=== PATIENT | male | born 1950 | race Caucasian/White ===

== ENCOUNTER 2017-01-21 11:55 | Inpatient (IN) | payer MEDICARE, OTHER ==
[2017-01-12 20:34] LABS: HEMATOCRIT 46.4 % (40.0-51.0); HEMOGLOBIN 15.2 g/dL (13.6-17.8)
[2017-01-12 20:39] LABS: ASCORBIC ACID (UR NOT ORDER) NEG (NEG); BILIRUBIN, URINE NEGATIVE (NEG); KETONE, URINE NEGATIVE (NEG)
[2017-01-12 20:59] LABS: BUN (BLOOD UREA NITROGEN) 19 MG/DL (6-23); CALCIUM, SERUM 9.3 MG/DL (8.5-10.4); CHLORIDE, SERUM 100 MMOL/L (96-112); CO2 (CARBON DIOXIDE) 35 MMOL/L (24-34); CREATININE 1.24 MG/DL (0.70-1.30); GFR AFRICAN AMERICAN 68 ML/MIN (>=60); GFR NON AFRICAN AMERICAN 59 ML/MIN (>=60); GLUCOSE, SERUM 118 MG/DL (60-99); POTASSIUM, SERUM 4.5 MMOL/L (3.5-5.3); SODIUM, SERUM 140 MMOL/L (135-148)
--- NOTE | ~2017-01-21 | OP ---
Record Of Operation [facility] [address] [place]. [address] NAME: BERE LEAL : 46 STATUS : ADM IN PAT#: [id number] AGE: 67 ADM/REG DATE : 01/21/17 MR#: [id number] REPORT SERV DATE: 01/21/17 DICTATED BY: KEE HUBBARD DATE: 01/21/17 REPORT STATUS : Draft TRANSCRIBED BY: MODL DATE: 01/21/17 DATE OF PROCEDURE: 01/21/2017 ATTENDING PHYSICIAN: Kee Hubbard M.D. TITLE OF OPERATION: 1. Robot-assisted laparoscopic radical prostatectomy. 2. Robot-assisted laparoscopic bilateral extended pelvic lymph node dissection. PREOPERATIVE DIAGNOSIS: Prostate cancer. POSTOPERATIVE DIAGNOSIS: Prostate cancer. INDICATIONS: Mr. Leal is a 67-year-old male with high-volume intermediate-risk prostate cancer. He was counseled regarding his options including active surveillance, various forms of radiation therapy, and radical prostatectomy. He is here for radical prostatectomy. ANESTHESIA: General. COMPLICATIONS: None. IMPLANTS: 1. An 18-Sammarinese Leal catheter. 2. #10 MIKE drain. SPECIMENS: 1. Prostate and seminal vesicles. 2. Bilateral pelvic lymph nodes. 3. Anterior fat pad. NARRATIVE: The patient was brought to the operating room, identified by his wristband. General anesthesia was induced and Ancef was given for preoperative antibiotics. He was placed in dorsal lithotomy position, prepped and draped in sterile fashion. His abdomen was insufflated to a pressure of 15 mmHg using a Veress needle. A 16-Sammarinese Leal catheter was placed into his bladder. The balloon was inflated with 10 mL of sterile fluid. An 8-mm port was placed in the supraumbilical position under direct vision. The abdomen was inspected. There were no adhesions. Two 8-mm robotic ports were placed in the left side of the body and one 8-mm robotic port was placed in the right side of the body. A 12-mm and 5- mm ports were both placed in the right side of the body for assistant teacher ports. The patient was placed in Trendelenburg. Robot was docked. I began the operation by incising the peritoneum over the seminal vesicles and vas deferens. These structures were dissected out bilaterally. The vasa deferentia were clipped and divided bilaterally. The pedicle to the seminal vesicles were clipped and divided bilaterally. Next, Denonvilliers fascia was incised posteriorly and reflected onto the rectum inferiorly. This dissection was carried from the base of the prostate to the apex and then laterally to the neurovascular structures. Next, the bladder was dropped off the anterior abdominal wall with Record Of Operation [facility] [address] [place]. [address] NAME: BERE LEAL : 46 STATUS : ADM IN PAT#: [id number] AGE: 67 ADM/REG DATE : 01/21/17 MR#: [id number] REPORT SERV DATE: 01/21/17 DICTATED BY: KEE HUBBARD DATE: 01/21/17 REPORT STATUS : Draft TRANSCRIBED BY: ALE DATE: 01/21/17 electrocautery. This exposed the pubic bone and the prostate. The prostate was defatted and all fibrofatty tissue overlying the prostate and some superficial dorsal vein were controlled with bipolar cautery and scissors. This tissue was removed with anterior fat pad and sent to pathology. Next, the endopelvic fasciae were divided bilaterally. The levator fibers were flipped off the prostate bluntly. The puboprostatic ligaments were divided bilaterally. The dorsal vein was precisely identified and stapled with 35-mm endovascular stapler. A 3-0 V-Loc suture was used to oversew the staple line and tacked the dorsal vein to the pubic bone as a suspensory stitch to improve continence. The urethra was dissected out circumferentially. Next, a bladder neck preservation operation was performed. All fibrofatty tissue over the bladder neck was controlled with bipolar cautery and scissors. The anterior bladder neck was entered. The catheter was identified. The posterior bladder neck was incised and dissection was carried posteriorly to expose the seminal vesicles and vas deferens, which were previously dissected out. These structures were brought into the surgical field. The pedicles to the prostate were clipped and divided bilaterally. A bilateral nerve-sparing operation was performed by bluntly sweeping the neurovascular structures off the prostate in a retrograde and antegrade fashion. The urethra was then divided sharply under direct vision. Posterior striated sphincter was then divided. The prostate was freed and put into an EndoCatch bag. Next, attention was turned to the lymph nodes in the left side. All fibrofatty tissue beneath the external iliac vein in the obturator fossa and internal iliac vessels was removed. The obturator nerve was spared. Lymphatics were clipped proximally and distally. Similarly, on the right side, all fibrofatty tissue beneath the external iliac vein, in obturator fossa, and overlying the internal iliac vessels was removed. The obturator nerve was spared. Care was taken to clip lymphatics proximally and distally. Lymphatic tissue was placed into a bag and will be sent to pathology as pelvic lymph nodes. There was one small arterial bleeder up at the left apex on the neurovascular bundle. This was precisely clipped. There was no other bleeding. The posterior striated sphincter was then reconstructed with a 3-0 V-Loc suture in the manner described by Flavio. A running vesicourethral anastomosis was then performed with two interlocked 3-0 V-Loc sutures. An 18-Sammarinese Leal catheter was placed. The bladder was irrigated. The anastomosis was watertight. 15 mL were placed in the balloon. The robot was undocked. The assistant teacher port was closed with a 0 Vicryl suture using Vic Ervin device. A #10 MIKE drain was placed through the left lateral robotic port. It was sutured in place with a 2-0 Prolene suture. The supraumbilical incision was enlarged at the skin and fascial levels. The bag with specimens was removed and sent to pathology for analysis. The fascia was closed with 0 Monocryl suture in a [id number] fashion. The wounds were irrigated clear. The subcutaneous tissues were closed with 3-0 Vicryl. Skin was closed with 4-0 Monocryl suture. Dermabond dressing was placed. A TAP block was placed preoperatively. The patient was awoken from anesthesia and transferred to recovery room in stable condition. His urine was clear. OXANA/MODL Kee Hubbard MD Record Of Operation [address] [address] NAME: BERE LEAL : 46 STATUS : ADM IN [facility]#: [id number] AGE: 67 ADM/REG DATE : 01/21/17 MR#: [id number] REPORT SERV DATE: 01/21/17 DICTATED BY: KEE HUBBARD DATE: 01/21/17 REPORT STATUS : Draft TRANSCRIBED BY: ALE DATE: 01/21/17 / [id number] CC: Kee Hubbard MD
[~2017-01-21 11:55] MED LIST: ASAB PO; CYMBALTA60 PO; KLONO5 PO; MULTIPLE VIT PO; PRILO PO; PRIN5 PO; PROBIOTIC; ZYRTEC ALLGY10 MG PO
[2017-01-21 17:56] LABS: HEMATOCRIT 39.6 % (40.0-51.0)
[2017-01-21 18:10] LABS: BUN (BLOOD UREA NITROGEN) 16 MG/DL (6-23); CHLORIDE, SERUM 103 MMOL/L (96-112); CREATININE 1.24 MG/DL (0.70-1.30); GFR AFRICAN AMERICAN 68 ML/MIN (>=60); GFR NON AFRICAN AMERICAN 59 ML/MIN (>=60); SODIUM, SERUM 139 MMOL/L (135-148)
[2017-01-21 18:14] LABS: CALCIUM, SERUM 7.9 MG/DL (8.5-10.4); CO2 (CARBON DIOXIDE) 28 MMOL/L (24-34); GLUCOSE, SERUM 172 MG/DL (60-99)
[2017-01-22 06:29] LABS: HEMOGLOBIN 12.6 g/dL (13.6-17.8)
[2017-01-22 06:47] LABS: BUN (BLOOD UREA NITROGEN) 15 MG/DL (6-23); CALCIUM, SERUM 7.7 MG/DL (8.5-10.4); CHLORIDE, SERUM 102 MMOL/L (96-112); CO2 (CARBON DIOXIDE) 27 MMOL/L (24-34); CREATININE 1.07 MG/DL (0.70-1.30); GFR AFRICAN AMERICAN 82 ML/MIN (>=60); GFR NON AFRICAN AMERICAN 70 ML/MIN (>=60); GLUCOSE, SERUM 161 MG/DL (60-99); SODIUM, SERUM 137 MMOL/L (135-148)
[2017-01-23] MEDS ORDERED: BACDS PO (10:38)
[2017-01-23] MEDS ORDERED: DIL2TAB PO (10:39)
[2017-01-23] MEDS ORDERED: VIAGRA100 MG PO (10:39)
== END 2017-01-23 18:00 | disposition home or self-care (01) | DRG 708 ==
LOC: SDC/OF 11:55 → PACU 17:35 → 4SO 19:31
PROVIDERS: Urology
PROC: 0VTQ4ZZ Resection of Bilateral Vas Deferens, Percutaneous Endoscopic Approach (ICD-10-PCS; principal; 2017-01-21 14:30)
PROC: 8E0W4CZ Robotic Assisted Procedure of Trunk Region, Percutaneous Endoscopic Approach (ICD-10-PCS; principal; 2017-01-21 14:30)
PROC: 0VT34ZZ Resection of Bilateral Seminal Vesicles, Percutaneous Endoscopic Approach (ICD-10-PCS; principal; 2017-01-21 14:30)
PROC: 07TC4ZZ Resection of Pelvis Lymphatic, Percutaneous Endoscopic Approach (ICD-10-PCS; principal; 2017-01-21 14:30)
PROC: 0VT04ZZ Resection of Prostate, Percutaneous Endoscopic Approach (ICD-10-PCS; principal; 2017-01-21 14:30)
DX: C61 Malignant neoplasm of prostate (principal); I10 Essential (primary) hypertension; F12.90 Cannabis use, unspecified, uncomplicated; K21.9 Gastro-esophageal reflux disease without esophagitis
CPT/HCPCS: 36415; 80048; 81001; 82570; 85014; 85018; 86850; 86900; 86901; 87086; 88304; 88305; 88307; 88309; 88342; 88344; 93005; A9270-GY; J0690; J1170; J1885; J2250; J2370; J2405; J2550; J2710; J2795; J3010